=== PATIENT | male | born 1970 | race Caucasian/White ===

== ENCOUNTER 2017-08-30 10:42 | Emergency (ER) | payer OTHER, SELFPAY | END 2017-08-30 12:28 | disposition home or self-care (01) | PROVIDERS: Emergency Provider Nurse Practitioner; Family Provider Pediatrics; Visit Provider Nurse Practitioner | DX: S69.91XA Unspecified injury of right wrist, hand and finger(s), initial encounter (principal); W20.1XXA Struck by object due to collapse of building, initial encounter; Y92.71 Barn as the place of occurrence of the external cause; Z88.0 Allergy status to penicillin; F17.210 Nicotine dependence, cigarettes, uncomplicated | CPT/HCPCS: 29125; 73130; 99202 ==

== ENCOUNTER 2024-07-29 03:20 | Emergency (ER) | payer MEDICAID, SELFPAY ==
[2024-07-29 03:21] VITALS: BP 158/103; PULSE 85; RESP 18; TEMP 36.6; O2SAT 99; BMI 22.6
--- NOTE | 2024-07-29 03:36 | CT_ITS ---
PROCEDURE INFORMATION: Exam: CT Chest Without Contrast; Diagnostic Exam date and time: 07/29/2024 3:48 AM Age: 53 years old Clinical indication: Injury or trauma; Fall; Blunt trauma (contusions or hematomas); Patient HX: Pain in sternal area; Additional info: Fall, R chest pain TECHNIQUE: Imaging protocol: Diagnostic computed tomography of the chest without contrast. Radiation optimization: All CT scans at this facility use at least one of these dose optimization techniques: automated exposure control; mA and/or kV adjustment per patient size (includes targeted exams where dose is matched to clinical indication); or iterative reconstruction. COMPARISON: No relevant prior studies available. FINDINGS: Lungs: Centrilobular emphysema. Pleural spaces: Unremarkable. No pneumothorax. No pleural effusion. Heart: Unremarkable. No cardiomegaly. No pericardial effusion. Coronary arteries: No coronary calcium noted. Lymph nodes: Calcified hilar and mediastinal lymph nodes consistent with prior granulomatous disease. Vasculature: Unremarkable. No aortic aneurysm. Bones/joints: Unremarkable. No acute fracture. Soft tissues: Unremarkable. IMPRESSION: 1. No acute traumatic injury identified. 2. Calcified hilar and mediastinal lymph nodes consistent with prior granulomatous disease. 3. Mild centrilobular emphysema. COMMENTS: The presence of pulmonary emphysema on CT is an independent risk factor for lung cancer. In the absence of a history or active diagnosis of lung cancer, it is recommended that this patient with emphysema be evaluated for enrollment in a low dose CT lung cancer screening program.
--- NOTE | 2024-07-29 03:39 | ED_ITS ---
Discharge Plan Disposition Patient Disposition: Home, Self-Care Prescriptions Prescriptions: New methocarbamol 500 mg tablet 1,000 mg PO Q6H PRN (Reason: pain) Qty: 30 0RF cyclobenzaprine 5 mg tablet 5 mg PO TID PRN (Reason: muscle spasm) Qty: 30 0RF No Action cefadroxil 1 GM tablet 1,000 mg PO BID sulfamethoxazole-trimethoprim 1 EACH tablet 1 each PO BID 10 Days Qty: 20 0RF Referrals Follow up/Referrals: Keegan Lima [Primary Care Provider] - See instructions Activity Restrictions/Add. Instructions Additional Instructions/Restrictions: Please follow-up with your primary care provider. Please return to the emergency department if you develop any new or worsening symptoms or become concerned for your health. I sent some muscle relaxers for pain as needed in addition to Tylenol and ibuprofen. Clinical Impressions Clinical Impression: Traumatic chest pain Print Language Print Language: Senegalese Discharge ED Provider: Aaron Flowers Adult HPI General Chief complaint: PAIN Stated complaint: AO 0100 fall rib pain Time Seen by Provider: 07/29/24 03:25 Mode of Arrival: Ambulatory Source of Information: Patient Limitations: No Limitations Description of Symptoms (Recalled from ER Triage Doc. by RN): Patient fell from a step ladder about 1.5 hrs ago. He is having pain on the right side of his ribs. He took a percocet 5 at home and states the pain is better than it was. He rates the pain as 5/10. It is worse when laying down. History of Present Illness HPI narrative: 53-year-old male without significant past medical history presents after a fall. He was on a short stepladder and the stepladder went out from under him and, he landed on the ladder on his right anterior lateral chest. He reports that he has felt some cracking and pain since that time. Pain is worse with deep inspiration. Denies any shortness of breath. Denies blood thinners. He reports that he did not hit his head, denies consciousness, denies pain anywhere else on his body. Related Data Home Medications ?Medication ?Instructions ?Recorded ?Confirmed cefadroxil 1 gram tablet 1,000 mg PO BID CUT 03/21/19 03/21/19 Previous Rx's ?Medication ?Instructions ?Recorded sulfamethoxazole 800 1 each PO BID 10 days #20 tabs 03/21/19 mg-trimethoprim 160 mg tablet cyclobenzaprine 5 mg tablet 5 mg PO TID PRN muscle spasm #30 07/29/24 tabs methocarbamol 500 mg tablet 1,000 mg (2 x 500 mg) PO Q6H PRN 07/29/24 pain #30 tabs Allergies Allergy/AdvReac Type Severity Reaction Status Date / Time Penicillins (PENICILLINS) Allergy Mild Verified 10/06/18 11:40 [facility] Disclaimer: The information contained in this section may have been updated after the patient was seen, as this information can be updated by other users. Medical History (Updated 07/29/24 @ 04:07 by Aaron Flowers MD) Paronychia due to ingrown nail Social History Smoking Status: Never smoker alcohol intake: never current occupational status: other Other Medical History Have you received the Pneumonia Vaccine: No ROS Obtained: Yes All systems reviewed & no additional complaints except as documented Physical Exam General General appearance: alert and in no apparent distress Head Head exam: atraumatic and normocephalic Eye Eye exam: Present normal appearance, PERRL and EOMI ENT ENT exam: Present normal oropharynx and normal external ear exam Neck Neck exam: Present normal inspection and full ROM Chest Chest inspection: Present normal inspection, symmetric chest wall rise and tenderness (Right anterior lateral and posterior chest wall) Respiratory Respiratory exam: Present normal lung sounds bilaterally; Absent respiratory distress Cardiovascular Cardiovascular exam: Present regular rate and normal rhythm Abdominal Exam Abdominal exam: Present soft; Absent distention, tenderness or guarding Extremities Exam Extremities exam: Present normal inspection; Absent edema or joint swelling Back Exam Back exam: Present normal inspection; Absent tenderness Neurological Exam Neurological exam: Present alert and oriented X3; Absent motor sensory deficit Psychiatric Psychiatric exam: Present normal affect and normal mood Skin Skin exam: Present warm, dry, normal color and other (There was a tick that was adherent to the patient's right shoulder. It was not engorged removed at home but there is a small halo of erythema surrounding it.) Lymphatic Lymphatic Findings: no adenopathy Medical Decision Making Medical Records Medical records reviewed: Yes I reviewed the patient's medical records. Screening: Per USPSTF and CDC recommendations, given the prevalence of disease in our region, it is our hospital?s policy to screen for HIV and viral Hepatitis for all patients aged 18 and over and those with ongoing risk factors. Ernie Inquiry Pt receiving controlled substance: No Ernie was queried for this patient: No Vital Signs: 07/29/24 03:21 07/29/24 04:08 07/29/24 04:15 Temperature 97.9 F Temperature Source Oral Pulse Rate 72 73 Pulse Rate [Right Radial] 85 Respiratory Rate 18 Blood Pressure [Right Arm] 158/103 H Blood Pressure Mean [Right Arm] 121 Blood Pressure Source [Right Arm] Automatic Cuff Blood Pressure Position [Right Arm] Supine 02 Sat by Pulse Oximetry 99 97 98 Oxygen Delivery Method Room Air Lab Data Lab results reviewed: Yes I reviewed the patient's lab results. Orders (Tests/Meds): ED MEDICATIONS Discontinued Medications Generic Name Dose Route Start Last Admin Trade Name Freq PRN Reason Stop Dose Admin Acetaminophen 500 mg 07/29/24 03:36 07/29/24 03:46 Acetaminophen 500mg Tab PO 07/29/24 03:37 500 mg ONCE ONE Administration Doxycycline Hyclate 100 mg 07/29/24 04:06 07/29/24 04:21 Doxycycline Hycl 100 Mg Tablet PO 07/29/24 04:07 100 mg ONCE ONE Administration Ketorolac Tromethamine 30 mg 07/29/24 03:36 07/29/24 03:46 Ketorolac 30mg/Ml Vial IM 07/29/24 03:37 30 mg ONCE ONE Administration Methocarbamol 1,000 mg 07/29/24 03:36 07/29/24 03:46 Methocarbamol 500mg Tablet PO 07/29/24 03:37 1,000 mg ONCE ONE Administration Morphine Sulfate 2 mg 07/29/24 03:36 07/29/24 03:47 Morphine 2mg/Ml Syringe IM 07/29/24 03:37 2 mg ONCE ONE Administration ORDERS Category Date Time Status CT chest wo con Stat Cat Scan 07/29/24 03:36 Completed Medical Decision Narrative: 53-year-old male without significant past medical history presents for fall onto a stepladder.. History was obtained via interactive discussion with patient, family. On arrival, patient is [afebrile, hemodynamically stable, satting appropriately, alert, oriented x4, GCS 15], moving all extremities spontaneously. Full physical exam performed and significant for right anterior lateral and posterior chest wall tenderness, no tenderness to the cervical thoracic or lumbar spine, no evidence of trauma to the head, no abdominal tenderness Differential includes but is not limited to intracranial intrathoracic intra- abdominal spinal extremity trauma. Patient was given Tylenol Toradol morphine and Robaxin for symptomatic management and correction of underlying abnormalities. Workup initiated including CT of the chest Noncon for isolated relatively low mechanism chest trauma. On re-evaluation, patient [remains afebrile, HD stable.] He reports some symptomatic improvement Imaging independently interpreted by me and significant for no evidence of pneumothorax no markedly displaced rib fractures. See radiology read for full review of final results. Blood work and contrasted scans was considered, but deemed unnecessary due to history and exam. Given patient history, exam and workup, patient's presentation most likely represents bruising secondary to fall. Interactive discussion with outpatient regarding symptomatic care, return precautions etc. Patient discharged in stable condition.. Procedures Risk/Benefits of Procedure(s) Were Explained: Yes Critical Care Critical Care Time Critical Care Time: No
[2024-07-29] MEDS: KETOROLAC 30MG/ML VIAL 30 MG IM (03:46)
[2024-07-29] MEDS: ACETAMINOPHEN 500MG TAB 500 MG PO (03:46)
[2024-07-29] MEDS: METHOCARBAMOL 500MG TABLET 1000 MG PO (03:46)
[2024-07-29] MEDS: MORPHINE 2MG/ML SYRINGE 2 MG IM (03:47)
[2024-07-29 04:08] VITALS: PULSE 72; O2SAT 97
[2024-07-29 04:15] VITALS: PULSE 73; O2SAT 98
[2024-07-29] MEDS: DOXYCYCLINE HYCL 100 MG TABLET PO (04:21)
[2024-07-29 04:30] VITALS: BP 148/104; PULSE 78; O2SAT 100
[2024-07-29 04:49] VITALS: BP 148/104; PULSE 89; RESP 20; TEMP 36.6; O2SAT 98
== END 2024-07-29 04:53 | disposition home or self-care (01) ==
PROVIDERS: Emergency Provider Emergency Medicine; PCP Internal Medicine Cardiovascular Disease
DX: R07.9 Chest pain, unspecified (principal); R07.82 Intercostal pain; W11.XXXA Fall on and from ladder, initial encounter; Y93.89 Activity, other specified; Y92.9 Unspecified place or not applicable
CPT/HCPCS: 71250; 96372; 99284; J1885; J2270